=== PATIENT | female | born 1965 | race Asian ===

== ENCOUNTER 2024-02-06 20:18 | Emergency (ER) | payer OTHER, SELFPAY ==
[2024-02-06 20:22] VITALS: BP 180/95
--- NOTE | 2024-02-06 20:49 | ED.GENMED ---
History of Present Illness
General
Chief Complaint: Headache
Source: patient and delivery mgr (Son)
Exam Limitations: none
Time Seen by Provider: 02/06/24 20:36
History of Present Illness
History of Present Illness:
This is a 58 year old female that comes in with c/o right sided headache pain. States that this has been constant for the past 2 weeks. States that it is over the right eye and goes back to the head and back of the head at night. States that this
has been constant daily. Today they went to and were sent here or further evaluation. Denies any fever, chills, chest pain, SOB, abd pain, nausea, vomiting, diarrhea, dizziness, urinary burning.
Past History
Past History
ED Past Medical History: HTN and Hypercholesterolemia
ED Past Surgical History: Gynecological (Hysterectomy)
Social History
Tobacco: Non-smoker
Alcohol: None
Personal:
Living: with family
Review of Systems
Review of Systems
All Other Systems: ROS reviewed and negative except as documented in HPI and ROS
Constitutional: Reports no symptoms; Denies fever or chills
EENT: Reports no symptoms
Respiratory: Reports no symptoms; Denies cough or trouble breathing
Cardiac: Reports no symptoms; Denies chest pain
ABD/GI: Reports no symptoms; Denies abdominal pain, nausea, vomiting or diarrhea
: Reports no symptoms; Denies dysuria, frequency or urgency
Musculoskeletal: Reports no symptoms
Skin: Reports no symptoms
Neurological: Reports headache (Right sided headache pain); Denies dizzy
Psychiatric: Reports no symptoms
Phy Exam
General Physical Exam
General Presentation: well appearing and no apparent distress
General age: appears stated age
General Skin: warm and dry
General Habitus: normal
General Mental: alert
General Hydration: appears well hydrated
ENT Exam
ENT Exam: TM's normal, pharynx normal and neck supple
Eye Exam
Eye Exam: EOMI
Cardiovascular Exam
Cardiovascular Exam: regular rate/rhythm, no edema, no murmur and normal peripheral pulses
Pulmonary Exam
Pulmonary Exam: lungs clear, no respiratory distress, no rales, chest non tender, no crackles, no rhonchi, no wheezing and no cough
Gastrointestinal Exam
Gastrointestinal Exam: normal bowel sounds, non tender, soft, no organomegaly, no pulsatile mass and non distended
Musculoskeletal Exam
Musculoskeletal Exam: full ROM and no edema
Skin Exam
Skin Exam: normal color, warm/dry, no rash and no petechia
Course
Orders/Labs/Results
Orders:
Orders
02/06/24 20:48
CT Head W/o Iv Contrast Urgent
Comment:
Reason For Exam: right sided headache pain
0.9% Sodium Chloride 1000 ml [Nss] 1,000 ml IV BOLUS
Acetaminophen [Tylenol] 1,000 mg PO NOW STA
Dexamethasone Sod Phosphate [Decadron] 20 mg IV NOW STA
Ketorolac [Toradol] 30 mg IV NOW STA
02/06/24 21:16
CRP [C-Reactive Protein] Urgent
Complete Blood Count/With Diff Urgent
Comprehensive Metabolic Panel Urgent
Sed Rate [Erythrocyte Sed Rate] Urgent
02/06/24 21:42
Urinalysis Reflex To Culture Urgent
Date Specimen was Collected: 02/06/24
Time Specimen was Collected: 21:38
Urine Microscopic Reflex Cult Urgent
Urine Culture Urgent
AQUILES Source: U
Specimen Description:
Date Specimen was Collected: 02/06/24
Time Specimen was Collected: 21:38
Abnormal Lab Results
02/06/24 02/06/24
21:16 21:42
WBC 11.6 H 10^3/uL
(4.8-10.8)
RBC 4.14 L 10^6/uL
(4.20-5.40)
Hct 35.5 L %
(37.0-47.0)
Abs Immat Gran (auto) 0.1 H 10^3/uL
(0-0.05)
Absolute Neuts (auto) 6.6 H 10^3/uL
(1.4-6.5)
Absolute Lymphs (auto) 3.7 H 10^3/uL
(1.2-3.4)
Absolute Monos (auto) 1.1 H 10^3/uL
(0.1-0.6)
ESR 38 H mm/hour
(0-20)
Leukocyte Esterase Rfl 2+ A
(Negative)
Urine WBC (Reflex) 11-15 A /HPF
(0-5)
Urine Bacteria (Reflex) Few A
(Negative)
02/06/24 21:16
02/06/24 21:16
WBC slightly elevated. Sed rate slightly elevated but adjust for age. CRP normal at 6.20, Urine questionable for infection. Will hold off on antibiotic until culture back.
Vital Signs
Initial and Last Documented VS:
Initial Vital Signs
Temp Pulse Resp BP Pulse Ox
98.8 F 79 16 180/95 99
02/06/24 20:22 02/06/24 20:22 02/06/24 20:22 02/06/24 20:22 02/06/24 20:22
Last Documented Vital Signs
Temp Pulse Resp BP Pulse Ox
98.8 F 79 16 180/95 99
02/06/24 20:22 02/06/24 20:22 02/06/24 20:22 02/06/24 20:22 02/06/24 20:22
MDM/Problems Addressed
Differential Diagnosis Includes:
Headache
MDM/Problems Addressed:
This is a 58 year old female that comes in with c/o right sided headache pain for the past 2 weeks. States that this is constant and goes form her right eye to the forehead and back to the back of her head.
Will check labs and get CT scan. Will give IV fluids and medicate for pain.
Back into see patient and son. Patient states that she is feeling better. Explained that the CT of her head is normal. Blood work is normal. Urine is questionable and if the Culture would come back positive she will be called and start on an
antibiotic. Patient to increase her water intake to 8-8oz glasses daily. Follow up with the family doctor for recheck. Return with any concerns.
Chronic conditions affecting care: HTN
Acute Exacerbation and/or Progression of Chronic Illness:
NA
*Radiology
Radiology exam reviewed: radiology read reviewed (CT head-NO acute intracranial abnormality noted. )
*Pulse Oximetry
Patient hypoxic: no
*EKG
Interpreted by ED Provider?: NA
Rate: EKG- N/A
*Sound Technician Supervisor Interpretation
Rate: Sound Technician Supervisor- N/A
*Critical Care Note
Total Time (30-74mins, 75-104mins- exclusive of procedures): Not Applicable
ED Attending Note
-
Portions of this chart may have been created with voice recognition software.� Occasional wrong word or��sound alike� substitutions may have occurred due to the inherent limitations of voice recognition software.
Discharge Plan
Departure
Patient Disposition: Home (Routine Discharge)
Date of Disposition: 02/06/24
Time of Disposition: 22:57
Patient with high blood pressure during this ER visit?: Yes
Condition: Good
Covid-19: Not Applicable
Discharge Problem:
Headache
Instructions: Headache, Adult (DC), BLOOD PRESSURE
Referrals:
Abel Turcios MD [Family Provider] - Follow up in 2-3 days
Activity Restrictions/Additional Instructions:
As discussed, your blood work shows that the white blood cell count is slightly elevated. Your urine is questionable for infection. This has been sent for a Culture and if this would come back positive for infection you will be called and started on
an antibiotic. Please increase your water intake to 8-8oz glasses daily. You may take Tylenol 1000mg every 6 hours for headache and pain and alternate with Ibuprofen 600mg every 6 hours with food. Follow up with the family doctor. IF YOU HAVE ANY
OTHER CONCERNS PLEASE RETURN TO THE EMERGENCY ROOM.
Interventions
Interventions:
*Risk Screen - Suicide Last Done: 02/06/24 21:29
*General Assessment Last Done: 02/06/24 21:29
*Neglect/Abuse Screening Last Done: 02/06/24 21:29
*ED COVID-19 Vaccine History Last Done: 02/06/24 21:29
ED- Neurological Assessment Last Done: 02/06/24 21:29
Discharge Date and Time
Print Language: PERSIAN
[2024-02-06] MEDS: NSS 1000 IV (21:17)
[2024-02-06] MEDS: TORADOL 30 MG IV (21:18)
[2024-02-06] MEDS: TYLENOL 1000 MG PO (21:18)
[2024-02-06] MEDS: DECADRON 20 MG IV (21:18)
[2024-02-06 21:22] LABS: % Basophils 0.3 % (0-2); % Eosinophils 1.9 % (0-6); % Immature Granulocytes 0.4 % (0-0.5); % Lymphocytes 31.5 % (20.5-51.1); % Monocytes 9.3 % (1.7-9.3); % Neutrophils 56.6 % (42.2-75.2); Absolute Eosinophils 0.2 10^3/uL (0-0.7); Absolute Immature Granulocytes 0.1 10^3/uL (0-0.05); Absolute Lymphocytes 3.7 10^3/uL (1.2-3.4); Absolute Monocytes 1.1 10^3/uL (0.1-0.6); Absolute Neutrophils 6.6 10^3/uL (1.4-6.5); Hematocrit 35.5 % (37.0-47.0); Hemoglobin 12.1 g/dL (12.0-16.0); Mean Corp Hgb Conc. 34.1 g/dL (33.0-37.0); Mean Corpuscular Hgb 29.2 pg (27.0-31.0); Mean Corpuscular Volume 85.7 fL (81.0-99.0); Nucleated Red Blood Cells % 0 %; Platelet Count 268 10^3/uL (130-400); Red Blood Cell Count 4.14 10^6/uL (4.20-5.40); White Blood Cell Count 11.6 10^3/uL (4.8-10.8)
[2024-02-06 21:32] LABS: Erythrocyte Sed Rate 38 mm/hour (0-20)
[2024-02-06 21:38] LABS: ALT (SGPT) 32 U/L (0-35); AST (SGOT) 33 U/L (14-36); Albumin 4.6 g/dl (3.5-5.0); Alkaline Phosphatase 47 U/L (38-126); Blood Urea Nitrogen 16 mg/dl (7-17); Calcium 9.8 mg/dl (8.4-10.2); Carbon Dioxide 23 mmol/L (22-30); Chloride 106 mmol/L (98-107); Glucose 95 mg/dl (70-99); Potassium 4.3 mmol/L (3.5-5.1); Sodium 141 mmol/L (135-145); Total Bilirubin 0.4 mg/dl (0.2-1.3); Total Protein 7.2 g/dl (6.3-8.2); eGFR > 60.00
[2024-02-06 21:51] LABS: Urine Albumin Negative (Neg - Trace); Urine Bilirubin Negative (Negative); Urine Character Clear (Clear); Urine Color Straw; Urine Glucose Negative (Negative); Urine Ketone Negative (Negative); Urine Leukocyte 2+ (Negative); Urine Nitrite Negative (Negative); Urine Occult Blood Negative (Negative); Urine Specific Gravity 1.005 (<1.030); Urine Urobilinogen Negative (Neg - 1+)
[2024-02-06 22:01] LABS: Urine Squamous Cell 0-2 /LPF (Few)
[2024-02-06 22:02] LABS: Urine Bacteria Few (Negative); Urine Red Blood Cell 0-2 /HPF (0-2)
[2024-02-06 23:08] VITALS: BP 152/79
== END 2024-02-06 23:09 | disposition home or self-care (01) ==
LOC: EMR 20:18
PROVIDERS: Clinical Nurse Specialist Family Health; EMERGENCY PHYSICIAN Emergency Medicine; FAMILY PHYSICIAN Internal Medicine
DX: R51.9 Headache, unspecified (principal); I10 Essential (primary) hypertension
CPT/HCPCS: 99284; 96374; 96375; 96361; 70450; 80053; 81003; 81015; 85025; 85652; 86140; 87086

== ENCOUNTER 2025-03-03 12:31 | Emergency (ER) | payer OTHER, SELFPAY ==
[2025-03-03 12:51] VITALS: BP 150/82
[2025-03-03] MEDS: LIDOCAINE 4% PATCH 1 PATCH TOPICAL (16:02)
[2025-03-03] MEDS: TORADOL 15 MG IM (16:02)
[2025-03-03] MEDS: TYLENOL 1000 MG PO (16:02)
[2025-03-03] MEDS: ROXICODONE 5 MG PO (17:21)
[2025-03-03 18:13] VITALS: BP 144/87
--- NOTE | 2025-03-03 19:20 | ED.GENMED ---
History of Present Illness
General
Chief Complaint: Musculo-Skeletal Complaint
Source: patient and family (Son at bedside)
Exam Limitations: none
Time Seen by Provider: 03/03/25 14:29
Nursing documentation reviewed up to this point in time: agreed with
History of Present Illness
History of Present Illness:
Patient is a 59-year-old female with history of hypertension, hyperlipidemia who presents to the emergency department with son for evaluation of lower back pain. Patient has a history of similar symptoms a few years ago and was seen by an
orthopedic at [facility] where she was treated with steroid injections and had pretty good improvement for a few years. However�she states that over the past few month symptoms have begun to worsen. She describes sharp pain in her right lower back
which radiates down into her right leg. Pain is worse with any movement, specifically when going from sitting to standing.
Patient denies any fever or urinary symptoms. No loss of bowel/bladder control. No weakness in extremities.
Patient had an MRI of her spine and right leg while in [place] visiting on 02/14/25. There was apparently no evidence of cord compression. She has been taking gabapentin and tramadol at home without significant improvement.
No history of malignancy.
Past History
Past History
ED Past Medical History: HTN and Hypercholesterolemia
ED Past Surgical History: Gynecological (Hysterectomy)
Social History
Tobacco: Non-smoker
Alcohol: None
Personal:
Living: with family
Review of Systems
Review of Systems
Allergies reviewed?: Yes
All Other Systems: ROS reviewed and negative except as documented in HPI and ROS
Phy Exam
Physical Exam
Physical Exam:
Vitals: Hypertensive, otherwise vital signs stable. Afebrile
General: Patient mildly uncomfortable appearing due to pain.
Skin: Warm and dry, no rashes or lesions
Head: Normocephalic, atraumatic
Eyes: Sclera nonicteric.
Throat: Protecting airway
Neck: Normal ROM, no cervical spine tenderness, no meningismus
Cardiac: Regular rate and rhythm, no murmurs.
Pulm: Normal respiratory effort, no wheezes, rales, rhonchi heard on exam
Abdomen: Abdomen soft and nontender.
Back: Reproducible tenderness in right lumbar spine without overlying rash.
Extremities: No reproducible pain in right lower extremity or obvious deformity. Neurovascular intact with palpable distal pulse and normal capillary refill. Strength 5/5 in bilateral upper and lower extremities.
Neuro: AAOx3. CN II-XII grossly intact. Slow gait. No focal neurologic deficits.
Psychiatric: Normal affect.
Course
Orders/Labs/Results
Orders:
Orders
03/03/25 15:54
Acetaminophen [Tylenol] 1,000 mg PO NOW STA
Ketorolac [Toradol] 15 mg IM NOW STA
03/03/25 16:00
Lidocaine [Lidocaine 4% Patch] 1 patch TOPICAL DAILY
Apply Lidocaine patch(s) to:: right lower back
03/03/25 17:03
Oxycodone [Roxicodone] 5 mg PO NOW STA
Vital Signs
Initial and Last Documented VS:
Initial Vital Signs
Temp Pulse Resp BP Pulse Ox
97.8 F 92 18 150/82 98
03/03/25 12:51 03/03/25 12:51 03/03/25 12:51 03/03/25 12:51 03/03/25 12:51
Last Documented Vital Signs
Temp Pulse Resp BP Pulse Ox
97.8 F 79 20 144/87 98
03/03/25 12:51 03/03/25 18:13 03/03/25 18:13 03/03/25 18:13 03/03/25 19:20
MDM/Problems Addressed
Differential Diagnosis Includes:
Not limited to: Spinal stenosis, radicular pain, sciatica, sacroiliitis, muscle strain/spasm, etc.
Chronic conditions affecting care:
N/A
Acute Exacerbation and/or Progression of Chronic Illness:
N/A
*Pulse Oximetry
SaO2: 98
Oxygen Mode of Delivery: Room air
Patient hypoxic: no
*EKG
Interpreted by ED Provider?: NA
*High School Coordinator Interpretation
Rate: High School Coordinator- N/A
*Critical Care Note
Total Time (30-74mins, 75-104mins- exclusive of procedures): Not Applicable
Data Reviewed
Review of Other/Old Records Reveals: Radiology Studies (Reviewed MRI report of spine/right leg performed 02/14/2025 in [facility])
ED Attending Note
-
Portions of this chart may have been created with voice recognition software.� Occasional wrong word or��sound alike� substitutions may have occurred due to the inherent limitations of voice recognition software.
Discharge Plan
Departure
Patient Disposition: Home (Routine Discharge)
Date of Disposition: 03/03/25
Time of Disposition: 17:56
Patient with high blood pressure during this ER visit?: Yes
Condition: Good
Discharge Problem:
Low back pain radiating to right leg
Instructions: Sciatica - ED (DC), BLOOD PRESSURE
Prescriptions:
New
lidocaine 5 % adhesive patch,medicated
1 patch topical DAILY Qty: 15 0RF
oxycodone 5 mg tablet
5 mg PO Q6H PRN (Reason: Pain) Qty: 10 0RF
No Action
ciprofloxacin HCl [Cipro] 500 mg tablet
500 mg PO BID Qty: 14 0RF
Referrals:
Alvin Hill MD [Active, Orthopedics] - Next open appointment
Abel Turcios MD [Family Provider, Internal Medicine]
Activity Restrictions/Additional Instructions:
RETURN TO THE EMERGENCY DEPARTMENT WITH ANY FEVER, INTRACTABLE PAIN, NUMBNESS OR WEAKNESS IN LOWER EXTREMITIES, LOSS OF BOWEL/BLADDER CONTROL, INABILITY TO AMBULATE, URINARY SYMPTOMS, WORSENING IN CURRENT SYMPTOMS OR ANY OTHER CONCERNS
- Continue to take Tylenol and/or Motrin as needed for pain. You can apply topical lidocaine patches. For intractable pain�a prescription for oxycodone has been sent to your pharmacy. This may cause drowsiness and you should not take prior to
driving. Do not take oxycodone in addition to gabapentin or tramadol as they can all cause drowsiness.
- Your recent MRI performed in [place] showed no evidence of spinal cord compression.
- You will require additional evaluation by orthopedics. Please contact their office tomorrow morning to schedule follow-up.
Monitor your symptoms closely and return to the emergency department with any acute worsening/new symptoms or any other concerns
Interventions
Interventions:
*General Assessment Last Done: 03/03/25 12:51
*ED COVID-19 Vaccine History Last Done: 03/03/25 12:51
*ED Influenza Vaccine History Last Done: 03/03/25 12:51
*Risk Screen - Suicide (C-SSRS) Last Done: 03/03/25 12:51
*Nursing Disposition Last Done: 03/03/25 18:13
ED-Musculoskeletal Assessment Last Done: 03/03/25 16:08
Discharge Date and Time
Discharge Date/Time: 03/03/25 18:14
Print Language: FAROESE
== END 2025-03-03 18:14 | disposition home or self-care (01) ==
LOC: EMR 12:31
PROVIDERS: EMERGENCY PHYSICIAN Emergency Medicine; FAMILY PHYSICIAN Internal Medicine
DX: M54.50 Low back pain, unspecified (principal); M79.604 Pain in right leg; I10 Essential (primary) hypertension; E78.00 Pure hypercholesterolemia, unspecified
CPT/HCPCS: 99284; 96372